=== PATIENT | female | born 1990 | race Caucasian/White ===

== ENCOUNTER 2020-02-01 15:45 | Outpatient (CLI) | payer MEDICAID, SELFPAY ==
[2020-02-01] VITALS (9 sets, daily range): BP systolic 0–105; BP diastolic 0–62; PULSE 64–82; RESP 18; TEMP 36.6; BMI 22.6
--- NOTE | 2020-02-01 16:48 | USR_ITS ---
PROCEDURE INFORMATION: Exam: US Biophysical Profile Without Non-Stress Test Exam date and time: 02/01/2020 5:01 PM Age: 29 years old Clinical indication: Other: Non reactive nst; ; Patient HX: Non reactive stress test TECHNIQUE: Imaging protocol: US biophysical profile without non-stress testing. COMPARISON: US OB >= 14 weeks fetus [id number] 11/01/2019 1:29 PM FINDINGS: heart rate: cardiac activity at 144 bpm. Presentation: Breech presentation. Placenta: Anterior placenta without visible previa or abruption. Amniotic fluid index: Amniotic fluid index 12.2 cm. BIOPHYSICAL PROFILE: Breathin/2 Gross body movements: 2/2 tone: 2/2 Qualitative amniotic fluid: 2/2 Biophysical Profile Score: 8/8 MATERNAL ANATOMY: Cervix: Cervical length 5.5 cm with internal os closed. US/US OB BPP wo NST [id number] IMPRESSION: Biophysical profile score of 8/8.
== END 2020-02-01 17:40 | disposition home or self-care (01) ==
LOC: OPOB 15:46 → OBGYN 15:47
PROVIDERS: Family Provider Family Medicine; Visit Provider Family Medicine
DX: O26.899 Other specified pregnancy related conditions, unspecified trimester (principal); Z3A.00 Weeks of gestation of pregnancy not specified
CPT/HCPCS: 59025; 76819

== ENCOUNTER 2020-02-25 01:34 | Inpatient (IN) | payer MEDICAID, SELFPAY ==
[2020-02-25] VITALS (14 sets, daily range): BP systolic 0–125; BP diastolic 0–85; PULSE 60–89; RESP 18; TEMP 36.6–36.8; O2SAT 98; BMI 23.0
[2020-02-25] MEDS: lactated ringers 1,000 ML 125 ML IV (01:55)
--- NOTE | 2020-02-25 02:38 | PM.DELIVERY ---
Delivery Note: Date of delivery: February 25, 2020 Pre-Delivery Course: The patient had routine care at [facility] beginning about 17 weeks gestation. There were no complications of the . Blood type was O+ antibody negative, hepatitis B surface antigen nonreactive, hepatitis C antibody nonreactive, HIV nonreactive, rubella immune, GC chlamydia negative. GBS currently unknown, Covid unknown - unable to access prenatals at this time. Delivery: This is a 29-year-old G6, P5 at 39 weeks 0-day gestation with EDC of 03/03/20 by LMP 05/28/19 (consistent with 21wk u/s IVY 03/11/20) who presented to labor and delivery in active labor. She was 8 to 9 cm upon presentation with membranes intact. Her water ruptured spontaneously less than 20 minutes prior to delivery with meconium noted. She had a normal spontaneous vaginal delivery of a viable male infant weight 2345 g, 5 pounds 3 ounces, Apgars 8 and 9. The infant was suctioned at delivery and placed on the mother's chest. The cord was clamped and cut. Cord blood was obtained. The placenta was delivered grossly intact and normal to inspection. There were no lacerations. Mother and were doing well after delivery. A&P Assessment and plan (1) Normal spontaneous vaginal delivery: Routine care Status: Acute (2) Grand multiparity: Status: Acute Coding Level of Care Code Acute Metal Or Wood Blocker for Chg Fwd Diagnoses Normal spontaneous vaginal delivery O80 Grand multiparity Z64.1
[2020-02-25] MEDS: oxytocin 30 UNIT/500 ML BAG 600 UNIT IV (03:30)
[2020-02-25 05:43] LABS: Basophils % 0.2 %; Eosinophils % 0.1 %; Hematocrit 38.6 % (37.0-47.0); Hemoglobin 12.8 g/dL (11.5-15.3); Lymphocytes # 1.9 10^3/uL (0.8-4.8); Lymphocytes % 13.9 %; Mean Corpuscular HGB Conc 33.2 g/dL (30.0-36.0); Mean Corpuscular Hemoglobin 31.4 pg (28.0-34.0); Mean Corpuscular Volume 94.6 fL (81-99); Mean Platelet Volume 12.2 fL (7.4-10.4); Monocytes # 0.5 10^3/uL (0.2-0.9); Monocytes % 3.9 %; Neutrophils # 11.01 10^3/uL (1.8-7.7); Neutrophils % 81.5 %; Nucleated Red Blood Cells % 0 %; Platelet Count 192 10^3/cmm (130-400); Red Blood Count 4.08 10^6/uL (4.1-5.3); Red Cell Distribution Width 13.7 % (12.1-15.1); White Blood Count 13.5 10^3/uL (4.0-10.0)
[2020-02-25] MEDS: prenatal vitamin Capsule 1 CAP PO (10:01)
[2020-02-25] MEDS: docusate sodium 100 mg Capsule PO ×2 (10:01→18:06)
[2020-02-25] MEDS: ibuprofen 800 mg tablet PO ×3 (10:02→21:38)
[2020-02-25 15:24] LABS: Hemoglobin 10.5 g/dL (11.5-15.3); Mean Corpuscular HGB Conc 33.9 g/dL (30.0-36.0); Mean Corpuscular Hemoglobin 31.3 pg (28.0-34.0); Mean Corpuscular Volume 92.3 fL (81-99); Mean Platelet Volume 11.3 fL (7.4-10.4); Platelet Count 196 10^3/cmm (130-400); Red Blood Count 3.36 10^6/uL (4.1-5.3); Red Cell Distribution Width 13.8 % (12.1-15.1)
[2020-02-26 03:30] VITALS: BP 101/56; PULSE 78; RESP 18; TEMP 36.6; O2SAT 98
[2020-02-26] MEDS: docusate sodium 100 mg Capsule PO ×2 (08:43→18:32)
[2020-02-26] MEDS: ibuprofen 800 mg tablet PO (08:43)
[2020-02-26] MEDS: prenatal vitamin Capsule 1 CAP PO (08:43)
[2020-02-26] MEDS: lanolin oint 7 gm 1 APPLIC TOPICAL (10:40)
[2020-02-26 10:51] VITALS: BP 108/64; PULSE 77; RESP 16; TEMP 36.4; O2SAT 98
[2020-02-26 16:15] VITALS: BP 109/71; PULSE 76; RESP 16; TEMP 36.9; O2SAT 97
--- NOTE | 2020-02-26 17:34 | PM.OBGYPN ---
[employer] Subjective Subjective: Interval history: Doing well, no complaints, Labor: Station: +1 Amniotic Membrane Status: Intact Monitor Mode: External Contraction Pattern: Regular Vitals/I&O/Wt Last Vital Signs Temp 98.4 F 02/26/20 16:15 Pulse 76 02/26/20 16:15 Resp 16 02/26/20 16:15 BP 109/71 02/26/20 16:15 Pulse Ox 97 02/26/20 16:15 Weight last 48 hrs Weight 130 lb Weight 130 lb Physical Exam Const: GENERAL APPEARANCE: cooperative, comfortable and well kempt HENMT: COMMON NORMALS: normocephalic and atraumatic HEAD & SCALP: normocephalic and atraumatic Resp: COMMON NORMALS: normal respiratory effort and No retractions Cardio: COMMON NORMALS: regular rate and regular rhythm RATE: regular rate RHYTHM: regular rhythm GI: COMMON NORMALS: Normal to inspection, nondistended, normoactive bowel sounds present, Soft to palpation and non-tender PALPATION: Yes Soft to palpation and Yes Other GI palpation findings present (Fundus firm U- 2) Extremity: GENERAL: No calf tenderness and No edema Psych: APPEARANCE: Yes well kempt MOOD & AFFECT: Yes Flat affect present Data : 02/25/20 14:55 A&P Assessment and plan (1) Grand multiparity: Status: Acute (2) Normal spontaneous vaginal delivery: Status: Acute (3) Poor weight gain of : During care the patient often blamed nausea. This did improve briefly with Zofran. I now suspect it may be more related to depression and/or social circumstances. Status: Acute (4) Depression affecting , : Diagnosed around 34 weeks gestation when the patient finally opened up to me. She took the Lexapro 2 times but said it caused her nausea so she discontinued it. Pt actually does appear improved affect after being here, resting, and eating. Status: Acute Attestations Medical Necessity Statement*: Routine care Coding Level of Care Code Acute Director Of Neurology for Chg Fwd Diagnoses Grand multiparity Z64.1 Normal spontaneous vaginal delivery O80 Poor weight gain of O26.10 Depression affecting , O99.345; F53.0
[2020-02-26 22:05] VITALS: BP 97/54; PULSE 69; RESP 14; TEMP 36.9
[2020-02-27 04:09] VITALS: BP 101/68; PULSE 72; RESP 16; TEMP 36.7
[2020-02-27] MEDS: docusate sodium 100 mg Capsule PO (09:12)
[2020-02-27] MEDS: prenatal vitamin Capsule 1 CAP PO (09:12)
[2020-02-27 09:17] VITALS: BP 105/63; PULSE 75; RESP 16; TEMP 36.6; O2SAT 97
--- NOTE | 2020-02-27 12:18 | PM.OBGYDC ---
Discharge Providers [employer]EL[employer] EXPEDITER Date of Admission: 02/25/20 01:34 Date of Discharge: 02/27/20 Attending Provider at Admission: Lela Monroy MD Attending Provider at Discharge: Lela Mnoroy MD Primary Care Provider: [facility] Diagnoses at Discharge Discharge Diagnosis (1) Grand multiparity: Status: Acute (2) Normal spontaneous vaginal delivery: Status: Acute (3) Poor weight gain of : Status: Acute (4) Depression affecting , : Status: Acute Permanent problem details: Patient resistant to taking medications. Hopefully she will follow-up outpatient Hospital Course Hospital Course This is a 29-year-old G6 now P6 who was admitted to labor and delivery in active labor. She had a normal spontaneous vaginal delivery of a viable male . The was kept for a good 48 hours because mother was GBS unknown. She was ambulating, tolerating a regular diet, had no edema and had decreased vaginal bleeding on the day of discharge Information Peripartum Data: Delivery Method: Vaginal Physical Exam HENMT: COMMON NORMALS: normocephalic and atraumatic HEAD & SCALP: normocephalic and atraumatic Eye: COMMON NORMALS: Equal, round and reactive pupils present and EOMs intact bilaterally PUPIL: Yes Equal, round and reactive pupils present Chest: COMMONS NORMALS: normal inspection of the chest Resp: COMMON NORMALS: normal respiratory effort and clear to auscultation bilaterally AUSCULTATION: clear to auscultation bilaterally Cardio: COMMON NORMALS: regular rate and regular rhythm RATE: regular rate RHYTHM: regular rhythm GI: COMMON NORMALS: Soft to palpation PALPATION: Yes Soft to palpation, No Tenderness to palpation present (GI) and Yes Other GI palpation findings present (Fundus firm U- 2) Extremity: GENERAL: No calf tenderness and No edema Psych: MOOD & AFFECT: Yes Flat affect present Discharge Data Data Completed and Pending: Pending at discharge Category Date Time Status COVID [Coronaviru s Lab Test PTC] St at Lab 02/25/20 06:22 Received Vitals: Last Vital Signs Temp 97.8 F 02/27/20 09:17 Pulse 75 02/27/20 09:17 Resp 16 02/27/20 09:17 BP 105/63 02/27/20 09:17 Pulse Ox 97 02/27/20 09:17 Discharge Plan Discharge Patient Disposition: Home Condition: Stable Prescriptions: Continued 28-800 mg-mcg Tablet 1 tab PO DAILY RF: 0 Discharge Orders: Discharge Order (Routine); Ordered 02/27/20 Ordered By: Lela Monroy Referrals: Lela Monroy MD [Physician] - 2 weeks Discharge Diet: Usual diet Discharge Activity: Limit activity as instructed Discharge Attestations REMELT FURNACE EXPEDITER Time Spent in Discharge Care*: less than 30 min Coding Level of Care Code Acute Archery Equipment Hay Sorter for Chg Fwd Diagnoses Grand multiparity Z64.1 Normal spontaneous vaginal delivery O80 Poor weight gain of O26.10 Depression affecting , O99.345; F53.0
[2020-02-27 13:30] VITALS: BP 116/71; PULSE 81; RESP 16; TEMP 36.6; O2SAT 98
[2020-02-28 09:30] LABS: Coronavirus Lab Test PTC Negative
== END 2020-02-27 13:45 | disposition home or self-care (01) | DRG 807 ==
PROVIDERS: Admitting Provider Family Medicine; Visit Provider Family Medicine
DX: O99.344 Other mental disorders complicating childbirth (principal); Z37.0 Single live birth; Z3A.39 39 weeks gestation of pregnancy; F32.9 Major depressive disorder, single episode, unspecified
CPT/HCPCS: 36415; 59025; 59409; 85025; 85027; 87635; 99211